=== PATIENT | male | born 1955 | race Caucasian/White ===

== ENCOUNTER 2018-04-15 20:22 | Observation (INO) ==
--- NOTE | 2018-04-15 21:31 | XR ---
EXAM DATE: 04/15/2018 9:23 PM EDT AGE/SEX: 62 years / Male INDICATIONS: Chest pain CLINICAL DATA: This is the patient's initial encounter. Patient reports that signs and symptoms have been present for 1 day and indicates a pain score of 8/10. MEDICAL/SURGICAL HISTORY: None. None. COMPARISON: No prior exams available for comparison. FINDINGS: Minimal basilar airspace disease. No effusion or pneumothorax. Heart size normal CONCLUSION: Minimal basilar opacity, probably atelectasis. No effusion or pneumothorax. Electronically signed by: Salo Roque MD 04/15/2018 9:30 PM EDT
[2018-04-15 21:54] LABS: Baso # (Auto) 0.1 th/mm3 (0.0-0.2); Baso % (Auto) 0.4 % (0.0-2.0); Eos # (Auto) 0.1 th/mm3 (0.0-0.4); Hematocrit 43.6 % (39.0-51.0); Hemoglobin 15.1 gm/dL (13.0-17.0); Lymph # (Auto) 2.8 th/mm3 (1.0-4.8); Lymph % (Auto) 18.9 % (9.0-44.0); Mean Corpuscular HGB Conc 34.6 % (32.0-36.0); Mean Corpuscular Hemoglobin 31.9 pg (27.0-34.0); Mean Corpuscular Volume 92.1 fL (80.0-100.0); Mono # (Auto) 1.4 th/mm3 (0.0-0.9); Mono % (Auto) 9.3 % (0.0-8.0); Neut # (Auto) 10.5 th/mm3 (1.8-7.7); Neut % (Auto) 70.4 % (16.0-70.0); Platelet Count 223 th/mm3 (150-450); Red Blood Count 4.73 mil/mm3 (4.50-5.90); White Blood Count 14.9 th/mm3 (4.0-11.0)
[2018-04-15 22:18] LABS: Alanine Aminotransferase 28 U/L (12-78); Albumin 3.8 g/dL (3.4-5.0); Anion Gap 7 meq/L (5-15); Aspartate Aminotransferase 21 U/L (15-37); Blood Urea Nitrogen 10 mg/dL (7-18); Calcium 8.8 mg/dL (8.5-10.1); Carbon Dioxide 31.2 meq/L (21.0-32.0); Chloride 99 meq/L (98-107); Glomerular Filtration Rate 67 mL/min (>89); Glucose,Random 94 mg/dL (74-106); Potassium 3.7 meq/L (3.5-5.1); Sodium 137 meq/L (136-145)
[2018-04-15 22:22] LABS: Alkaline Phosphatase 69 U/L (45-117); Total Protein 7.4 g/dL (6.4-8.2)
--- NOTE | 2018-04-16 00:05 | CT ---
EXAM DATE: 04/15/2018 11:49 PM EDT AGE/SEX: 62 years / Male INDICATIONS: chest pain with shortness of breath. CLINICAL DATA: This is the patient's initial encounter. Patient reports that signs and symptoms have been present for 1 day and indicates a pain score of 8/10. MEDICAL/SURGICAL HISTORY: Hepatitis C. Abdominal aortic aneurysm repair. RADIATION DOSE: 9.42 CTDI (mGy) COMPARISON: No prior exams available for comparison. TECHNIQUE: Volumetric scanning was performed using a multi-row detector CT scanner during bolus infu gissell of 70 ml Omnipaque 350 (iohexol) nonionic water-soluble contrast as a single exam dose. The esteban a was post processed with a variety of visualization algorithms including full volume maximum intensi ty projection and sliding thin slab reformation. Using automated exposure control and adjustment of the mA and/or kV according to patient size, radiation dose was kept as low as reasonably achievable t o obtain optimal diagnostic quality images. DICOM format image data is available electronically for review and comparison. FINDINGS: There is no pulmonary embolus. Mild to moderate emphysema. No infiltrate, effusion or pneumothorax. Heart size within normal limits. There is right and left side coronary artery calcification. Incident ally seen anatomic variant aberrant right subclavian artery that passes behind both the trachea and e sophagus. No lymphadenopathy. No acute abnormality seen in the upper abdomen. CONCLUSION: 1. No pulmonary embolus. 2. Mild to moderate emphysema. 3. Coronary artery calcification. 4. Aberrant right subclavian artery. Electronically signed by: Javier Ignacio MD 04/16/2018 12:03 AM EDT
[2018-04-16] MEDS ORDERED: Acetaminophen 500 MG Tablet PO PRN (00:52)
--- NOTE | 2018-04-16 00:52 | ED ---
HPI General Chief Complaint: Chest Pain Stated Complaint: chest pain, breathing issues Time Seen by Provider: 04/15/18 21:03 History of Present Illness HPI narrative: 62-year-old male complaining of chest pain acute onset approximately 4-5 PM this evening. No priors. Pain is a squeezing sensation that does not radiate. Patient does not visit with her regular physician. He is a heavy smoker. Related Data Home Medications Medication Instructions Recorded Confirmed No Known Home Medications 04/15/18 04/15/18 Allergies Allergy/AdvReac Type Severity Reaction Status Date / Time No Known Allergies Allergy Verified 04/15/18 20:33 Review of Systems Cardiovascular Reports chest pain PMFSH Social History Social History Substance History: No History of Abuse Second Hand Smoke Exposure: Yes Smoking Status: Current every day smoker Tobacco Type: Cigarettes Packs Per Day: 1 Cigarettes Per Day: 20.0 Years Smoked: 40 Pack-Years: 40.00 How Often Do You Have a Drink Containing Alcohol: 2 to 3 times a week Hx Recent Travel: No Recent Travel in [facility] within the Last 8 Weeks: No Recent Out of Country Travel within the Last 8 Weeks: No Immunization History Tetanus Immunization: Unsure Exam Narrative Exam Narrative: GENERAL: 62-year-old male in mild distress secondary to pain SKIN: Focused skin assessment warm/dry. HEAD: Atraumatic. Normocephalic. EYES: Pupils equal and round. No scleral icterus. No injection or drainage. ENT: No nasal bleeding or discharge. Mucous membranes pink and moist. NECK: Trachea midline. No JVD. CARDIOVASCULAR: Regular rate and rhythm. No murmur appreciated. RESPIRATORY: No accessory muscle use. Clear to auscultation. Breath sounds equal bilaterally. GASTROINTESTINAL: Abdomen soft, non-tender, nondistended. Hepatic and splenic margins not palpable. MUSCULOSKELETAL: No obvious deformities. No clubbing. No cyanosis. No edema. PSYCHIATRIC: Appropriate mood and affect; insight and judgment normal. Course Initial Documented Vital Signs Temperature 98.6 F 04/15/18 20:31 Pulse Rate 95 H 04/15/18 20:31 Respiratory Rate 24 04/15/18 20:31 Blood Pressure 164/78 H 04/15/18 20:31 Pulse Oximetry 96 04/15/18 20:31 Last Documented Vital Signs Temperature 98.8 F 04/16/18 07:54 Pulse Rate 88 04/16/18 07:54 Respiratory Rate 16 04/16/18 07:54 Blood Pressure 135/72 04/16/18 07:54 Pulse Oximetry 95 04/16/18 07:54 Medical Decision Making MDM Narrative Medical decision making narrative: Patient was seen and evaluated in the emergency department. His initial studies were negative. Given his smoking history and persistent chest pain CT was obtained to rule out pulmonary embolism. Patient was placed in chest pain center for ongoing monitoring and evaluation. Medical Screen Exam Complete: Yes Emergency Medical Condition: Yes Lab Data Result diagrams: 04/15/18 21:20 04/15/18 21:20 Lab Results 04/15/18 04/15/18 04/16/18 Range/Units 21:20 21:20 01:20 WBC 14.9 H (4.0-11.0) th/mm3 RBC 4.73 (4.50-5.90) mil/mm3 Hgb 15.1 (13.0-17.0) gm/dL Hct 43.6 (39.0-51.0) % MCV 92.1 (80.0-100.0) fL MCH 31.9 (27.0-34.0) pg MCHC 34.6 (32.0-36.0) % RDW 14.0 (11.6-17.2) % Plt Count 223 (150-450) th/mm3 MPV 8.0 (7.0-11.0) fL Neut % (Auto) 70.4 H (16.0-70.0) % Lymph % (Auto) 18.9 (9.0-44.0) % Darke % (Auto) 9.3 H (0.0-8.0) % Eos % (Auto) 1.0 (0.0-4.0) % Baso % (Auto) 0.4 (0.0-2.0) % Neut # (Auto) 10.5 H (1.8-7.7) th/mm3 Lymph # (Auto) 2.8 (1.0-4.8) th/mm3 Darke # (Auto) 1.4 H (0.0-0.9) th/mm3 Eos # (Auto) 0.1 (0.0-0.4) th/mm3 Baso # (Auto) 0.1 (0.0-0.2) th/mm3 WBC Differential . Differential Comment Auto diff final Sodium 137 (136-145) meq/L Potassium 3.7 (3.5-5.1) meq/L Chloride 99 (98-107) meq/L Carbon Dioxide 31.2 (21.0-32.0) meq/L Anion Gap 7 (5-15) meq/L BUN 10 (7-18) mg/dL Creatinine 1.12 (0.60-1.30) mg/dL Estimated GFR 67 L (>89) mL/min Random Glucose 94 (74-106) mg/dL Calcium 8.8 (8.5-10.1) mg/dL Total Bilirubin 0.3 (0.2-1.0) mg/dL AST 21 (15-37) U/L ALT 28 (12-78) U/L Alkaline Phosphatase 69 (45-117) U/L Total Creatine Kinase 92 (39-308) U/L Troponin I Less than 0.02 L Less than 0.02 L (0.02-0.05) ng/mL Total Protein 7.4 (6.4-8.2) g/dL Albumin 3.8 (3.4-5.0) g/dL 04/16/18 Range/Units 04:00 WBC (4.0-11.0) th/mm3 RBC (4.50-5.90) mil/mm3 Hgb (13.0-17.0) gm/dL Hct (39.0-51.0) % MCV (80.0-100.0) fL MCH (27.0-34.0) pg MCHC (32.0-36.0) % RDW (11.6-17.2) % Plt Count (150-450) th/mm3 MPV (7.0-11.0) fL Neut % (Auto) (16.0-70.0) % Lymph % (Auto) (9.0-44.0) % Darke % (Auto) (0.0-8.0) % Eos % (Auto) (0.0-4.0) % Baso % (Auto) (0.0-2.0) % Neut # (Auto) (1.8-7.7) th/mm3 Lymph # (Auto) (1.0-4.8) th/mm3 Darke # (Auto) (0.0-0.9) th/mm3 Eos # (Auto) (0.0-0.4) th/mm3 Baso # (Auto) (0.0-0.2) th/mm3 WBC Differential Differential Comment Sodium (136-145) meq/L Potassium (3.5-5.1) meq/L Chloride (98-107) meq/L Carbon Dioxide (21.0-32.0) meq/L Anion Gap (5-15) meq/L BUN (7-18) mg/dL Creatinine (0.60-1.30) mg/dL Estimated GFR (>89) mL/min Random Glucose (74-106) mg/dL Calcium (8.5-10.1) mg/dL Total Bilirubin (0.2-1.0) mg/dL AST (15-37) U/L ALT (12-78) U/L Alkaline Phosphatase (45-117) U/L Total Creatine Kinase 90 (39-308) U/L Troponin I Less than 0.02 L (0.02-0.05) ng/mL Total Protein (6.4-8.2) g/dL Albumin (3.4-5.0) g/dL Imaging Data Radiologist's impression: Chest X-Ray 04/15/18 21:04 CONCLUSION: Minimal basilar opacity, probably atelectasis. No effusion or pneumothorax. Chest CTA 04/15/18 22:51 CONCLUSION: 1. No pulmonary embolus. 2. Mild to moderate emphysema. 3. Coronary artery calcification. 4. Aberrant right subclavian artery. Myocardial Perfusion Scan Nuc Med 04/16/18 00:00 CONCLUSION: 1. No reversible perfusion defect to indicate stress-induced myocardial ischemia identified. 2. Ejection fraction within the range of normal. Discharge Plan Discharge Disposition Patient Disposition: 30 Still Patient Discharge Condition Condition: Stable Discharge Order Discharge Orders: Discharge Order (Routine); Ordered 04/16/18 Ordered By: Leonora Thornton Discharge Details Discharge Comment: Contact [facility] [place] for more information and counseling services available Diagnosis: Chest pain Physicians Team ED Provider: Nelson Daniel Primary Care Provider: Primary Care Maria Del Rosario Zuniga Attending Provider: Kareem Nath ED Status: Left Department Discharge Information Discharge Date/Time: 04/16/18 01:56
[2018-04-16] MEDS ORDERED: Sod Chloride 0.9% Inj 1,000 ML IV.CONT SCH (01:00)
[2018-04-16 01:53] LABS: Creatine Kinase 92 U/L (39-308)
[2018-04-16 04:16] VITALS: O2SAT 95
[2018-04-16 04:55] LABS: Creatine Kinase 90 U/L (39-308)
[2018-04-16 07:56] VITALS: BP 135/72; PULSE 88; RESP 16; TEMP 98.8
--- NOTE | 2018-04-16 08:21 | P.HPCA ---
History of Present Illness Primary Care Physician: No Primary Care Physician Chief Complaint: Chest pain History of Present Illness: 62-year-old male current smoker without any known significant medical history presents emergency room for further evaluation of chest pain. Onset 5 PM last evening. Sudden onset. Location substernal. Characterizes tightness and pressure. No radiation. Duration constant, waxing and waning in intensity. Associated symptoms included dizziness. Hurts to take a deep breath. No particular movement or position makes pain better or worse. No associated symptoms of nausea, vomiting, diaphoresis, or dyspnea. No precipitating or relieving factors. Denies similar pain in the past. Family history noncontributory for early onset cardiovascular disease. No recent illness, fever or chills. No increase in sputum production. Past cardiac testing None Social history No known coronary artery disease, hypertension, hyperlipidemia, or diabetes. 1 pack/daily smoker. . [employer] [facility] [employer]. Family history Noncontributory for early onset cardiovascular - Diagnosis (1) Atypical chest pain (2) Tobacco use Review of Systems All other systems reviewed negative except as [facility] - History History Provided By: Patient - Medical / Surgical Hx Neg / Unobtainable Surgical History: No Previous Surgery - Medical History Medical History: Medical History (Last Reviewed 04/16/18 @ 08:15 by MARCELLE Flores) Hepatitis C - Surgical History Surgical History: Surgical History (Last Reviewed 04/16/18 @ 08:15 by MARCELLE Flores) No history of previous surgery - Social History I have reviewed the patient's Social History: Yes - Tobacco History Second Hand Smoke Exposure: Yes Tobacco Use In Past 30 Days: Yes Smoking Status: Current every day smoker Tobacco Type: Cigarettes Packs Per Day: 1 Years Smoked: 40 - Alcohol History How Often Do You Have a Drink Containing Alcohol: 2 to 3 times a week - Substance Use History Substance History: No History of Abuse - Travel History History of Recent Travel: No Recent Travel in the [place] Within the Last 8 Weeks: No Recent Travel Out of the Country Within the Last 8 Weeks: No - Immunization History Tetanus Immunization: Unsure Medications and Allergies Active Medications: Active Medications Acetaminophen (Tylenol) 500 mg PO Q4H PRN PRN Reason: HEADACHE Albuterol (Duoneb Neb (Prn)) 1 ampul NEB Q4HR NEB PRN PRN Reason: SHORTNESS OF BREATH/WHEEZING Sodium Chloride (Ns Inj) 1,000 mls @ 100 mls/hr IV.CONT .Q10H [facility] Last Admin: 04/16/18 01:29 Dose: 100 mls/hr Nitroglycerin (Nitro-Bid 2% Oint) 1 inch TOPICAL Q6HR [facility] Last Admin: 04/16/18 06:19 Dose: 1 inch Sodium Chloride (Ns Flush) 2 ml IV.FLUSH UNSCH PRN PRN Reason: FLUSH AFTER USING IV ACCESS Sodium Chloride (Ns Flush) 2 ml IV.FLUSH BID ADRIANNA Sodium Chloride (Ns Flush) 2 ml IV.FLUSH PRN PRN PRN Reason: FLUSH AFTER USING IV ACCESS Allergies Allergy/AdvReac Type Severity Reaction Status Date / Time No Known Allergies Allergy Verified 04/15/18 20:33 Home Medications Medication Instructions Recorded Confirmed Type No Known Home Medications 04/15/18 04/15/18 History Exam Vital signs: Vital Signs 04/15/18 20:31 04/15/18 20:51 04/15/18 21:24 Temperature 98.6 F Pulse Rate 95 H 94 H 98 H Respiratory Rate 24 20 22 Blood Pressure 164/78 H 144/80 H 143/84 H Pulse Oximetry 96 97 96 04/15/18 21:59 04/15/18 22:22 04/16/18 00:08 Temperature Pulse Rate 89 Respiratory Rate 18 18 18 Blood Pressure 128/74 Pulse Oximetry 96 97 04/16/18 01:29 04/16/18 01:41 04/16/18 02:07 Temperature 98.9 F Pulse Rate 93 H Respiratory Rate 17 Blood Pressure 147/72 H Pulse Oximetry 97 95 96 04/16/18 04:00 04/16/18 07:54 Temperature 98.9 F 98.8 F Pulse Rate 89 88 Respiratory Rate 18 16 Blood Pressure 156/86 H 135/72 Pulse Oximetry 95 95 Intake & Output 04/15/18 04/16/18 04/16/18 18:59 06:59 18:59 Weight 65.8 kg Other: # Voids 1 Narrative: GENERAL: Alert WN, WD, NAD, pleasant, thin, male who appears older than stated age HEAD: NC, AT EYES: Sclera clear, conjunctiva without injection, pupils equal and round ENT: Mucous membranes pink and moist NECK: Supple, no masses, trachea midline CV: RRR, without murmur, rub, gallop, no JVD, S1-S2. RESP: Diminished lungs throughout bilateral, no crackles, wheeze, rhonchi, symmetrical chest rise, nonlabored, able to speak in full sentences ABD: Soft, NT, ND, no masses, positive bowel tones EXT: Pulses +2x4, no dependent edema MS: Normal tone x4 extremities, nontender, no obvious deformities, full range of motion NEURO: CN II through CN XII grossly intact, motor strength 5/5, gait WNL PSYCH: A+O x3, pleasant affect, appropriate speech, mood, insight and judgment SKIN: Normal turgor, normal texture, no lesions, no rashes, brisk cap refill, even hair distribution Results 04/15/18 21:20 04/15/18 21:20 Cardiac Enzymes 04/15/18 04/16/18 04/16/18 Range/Units 21:20 01:20 04:00 AST 21 (15-37) U/L Troponin I Less than 0.02 L Less than 0.02 L Less than 0.02 L (0.02-0.05) ng/mL CBC 04/15/18 Range/Units 21:20 WBC 14.9 H (4.0-11.0) th/mm3 RBC 4.73 (4.50-5.90) mil/mm3 Hgb 15.1 (13.0-17.0) gm/dL Hct 43.6 (39.0-51.0) % Plt Count 223 (150-450) th/mm3 Neut # (Auto) 10.5 H (1.8-7.7) th/mm3 Lymph # (Auto) 2.8 (1.0-4.8) th/mm3 [place] # (Auto) 1.4 H (0.0-0.9) th/mm3 Eos # (Auto) 0.1 (0.0-0.4) th/mm3 Baso # (Auto) 0.1 (0.0-0.2) th/mm3 Comprehensive Metabolic Panel 04/15/18 Range/Units 21:20 Sodium 137 (136-145) meq/L Potassium 3.7 (3.5-5.1) meq/L Chloride 99 (98-107) meq/L Carbon Dioxide 31.2 (21.0-32.0) meq/L BUN 10 (7-18) mg/dL Creatinine 1.12 (0.60-1.30) mg/dL Calcium 8.8 (8.5-10.1) mg/dL AST 21 (15-37) U/L ALT 28 (12-78) U/L Alkaline Phosphatase 69 (45-117) U/L Total Protein 7.4 (6.4-8.2) g/dL Albumin 3.8 (3.4-5.0) g/dL Intake and Output 04/15/18 04/16/18 04/16/18 22:59 06:59 14:59 Other: # Voids 1 Weight 65.771 kg 65.8 kg - Imaging and Cardiology Imaging: Impressions Chest X-Ray 04/15/18 21:04 CONCLUSION: Minimal basilar opacity, probably atelectasis. No effusion or pneumothorax. Chest CTA 04/15/18 22:51 CONCLUSION: 1. No pulmonary embolus. 2. Mild to moderate emphysema. 3. Coronary artery calcification. 4. Aberrant right subclavian artery. EKG interpretations - EKG EKG results cardiology: sinus rhythm, normal axis, normal QRS, normal ST/T Caprini VTE Risk Assessment Caprini VTE Risk Assessment: No/Low Risk (score <= 1) Caprini Risk Assessment Model: Point Value = 1 Point Value = 2 Point Value = 3 Point Value = 5 Age 41-60 Minor surgery BMI > 25 kg/m2 Swollen legs Varicose veins or History of unexplained or recurrent spontaneous Oral contraceptives or hormone replacement Sepsis (< 1 month) Serious lung disease, including pneumonia (< 1 month) Abnormal pulmonary function Acute myocardial infarction Congestive heart failure (< 1 month) History of inflammatory bowel disease Medical patient at bed rest Age 61-74 Arthroscopic surgery Major open surgery (> 45 min) Laparoscopic surgery (> 45 min) Malignancy Confined to bed (> 72 hours) Immobilizing plaster cast Central venous access Age >= 75 History of VTE Family history of VTE Factor V Leiden Prothrombin [id number] Lupus anticoagulant Anticardiolipin antibodies Elevated serum homocysteine Heparin-induced thrombocytopenia Other congenital or acquired thrombophilia Stroke (< 1 month) Elective arthroplasty Hip, pelvis, or leg fracture Acute spinal cord injury (< 1 month) Prophylaxis Regimen: Total Risk Factor Score Risk Level Prophylaxis Regimen 0-1 Low Early ambulation 2 Moderate Order ONE of the following: *Sequential Compression Device (SCD) *Heparin 5000 units SQ BID 3-4 Higher Order ONE of the following medications: *Heparin 5000 units SQ TID *Enoxaparin/Lovenox 40 mg SQ daily (WT < 150 kg, CrCl > 30 mL/min) *Enoxaparin/Lovenox 30 mg SQ daily (WT < 150 kg, CrCl > 10-29 mL/min) *Enoxaparin/Lovenox 30 mg SQ BID (WT < 150 kg, CrCl > 30 mL/min) AND/OR *Sequential Compression Device (SCD) 5 or more Highest Order ONE of the following medications: *Heparin 5000 units SQ TID (Preferred with Epidurals) *Enoxaparin/Lovenox 40 mg SQ daily (WT < 150 kg, CrCl > 30 mL/min) *Enoxaparin/Lovenox 30 mg SQ daily (WT < 150 kg, CrCl > 10-29 mL/min) *Enoxaparin/Lovenox 30 mg SQ BID (WT < 150 kg, CrCl > 30 mL/min) AND *Sequential Compression Device (SCD) Assessment and Plan - Assessment (1) Atypical chest pain Code(s): R07.89 - Other chest pain Status: Acute Plan: Admitted chest pain center. Monitor on telemetry. ACS ruled out by 3 sets of EKGs and cardiac enzymes. Seen and evaluated by Dr. Michele Dias. Proceed with Lexiscan this morning. As needed respiratory treatments ordered, discussed with RN. Discomfort constant greater than 12 hours, atypical in presentation cardiac etiology. Likely related to long-standing tobacco use. Encouraged establishing with a primary care provider for further management. (2) Tobacco use Code(s): Z72.0 - Tobacco use Status: Chronic Plan: Strongly encouraged and stressed importance of tobacco cessation. Instructed to quit smoking. Discussed Tobacco Free [place] program available to him. H&P: Quality - VTE Deep Vein Thrombosis/Pulmonary Embolism Present on Admission: No
[2018-04-16] MEDS ORDERED: Regadenoson Inj 0.4 MG/5 ML Syringe IV.PUSH ONE (09:40)
--- NOTE | 2018-04-16 10:45 | NM ---
EXAM DATE: 04/16/2018 10:36 AM EDT AGE/SEX: 62 years / Male INDICATIONS:Angina. . Chest pain. CLINICAL DATA: This is the patient's initial encounter. Patient reports that signs and symptoms have been present for 1 day and indicates a pain score of 8/10. MEDICAL/SURGICAL HISTORY: Hepatitis C. Smoker. None. COMPARISON: . DOSE: 8.4 mCi Tc 99m Myoview at rest 25.9 mCi [id number] at stress 0.4 mg Lexiscan STRESS SYMPTOMS: Short of breath. EJECTION FRACTION: 54 % TECHNIQUE: The patient underwent pharmacologic stress with infusion of prescribed dose. Continuous ECG tracing was monitored during stress. Gated SPECT imaging was performed after stress and conventi onal SPECT imaging was performed at rest. The examination was performed on a SPECT/CT scanner, both attenuation and non-corrected datasets were reviewed. FINDINGS: Distribution: The maximum perfused segment at stress is in the anterolateral wall. Perfusion Study: The pattern of perfusion at stress is within normal limits. Gated Study: There are intact wall motion and wall thickening without hypokinetic or dyskinetic segm ents. The ejection fraction is calculated at 54%. RISK CATEGORY: Low (<1% Annual Motality Rate) CONCLUSION: 1. No reversible perfusion defect to indicate stress-induced myocardial ischemia identified. 2. Ejection fraction within the range of normal. Electronically signed by: Preet Diaz MD 04/16/2018 10:44 AM EDT
--- NOTE | 2018-04-17 17:24 | ECG ---
Date Performed: 04/16/2018 Time Performed: 04:17:40 PTAGE: 62 years EKG: Sinus rhythm POSSIBLE RIGHT ATRIAL ENLARGEMENT POSSIBLE LEFT ATRIAL ENLARGEMENT POSSIBLE RIGHT VENTRICULAR CONDUC TION DELAY BORDERLINE ECG Since PREVIOUS TRACING , no significant change noted DOCTOR: Randi Banerjee Interpretating Date/Time 04/17/2018 17:22:57
--- NOTE | 2018-04-17 17:24 | TR ---
Date Performed: 04/16/2018 Time Performed: 09:28:11 DOCTOR: Randi Banerjee DRUG LIST: CLINICAL HISTORY: REASON FOR TEST: REASON FOR ENDING: OBSERVATION: CONCLUSION: Lexiscan stress test was performed under standard four minute protocol. Radionuclid e was injected one minute prior to ending the test. No electrocardiographic abormalities were present to suggest ischemia. Nuclear imaging and interpretation are pending. COMMENTS: Lexiscan stress test was performed under standard four minute protocol. Radionuclide was injected one minute prior to ending the test. No electrocardiographic abormalities were present t o suggest ischemia. Nuclear imaging and interpretation are pending.
--- NOTE | 2018-04-17 17:25 | ECG ---
Date Performed: 04/16/2018 Time Performed: 01:22:00 PTAGE: 62 years EKG: Sinus rhythm POSSIBLE LEFT ATRIAL ENLARGEMENT POSSIBLE RIGHT VENTRICULAR CONDUCTION DELAY BORDERLINE ECG Since PREVIOUS TRACING , no significant change noted PREVIOUS TRACIN04/15/2018 20.41 DOCTOR: Randi Banerjee Interpretating Date/Time 04/17/2018 17:23:08
--- NOTE | 2018-04-17 17:26 | ECG ---
Date Performed: 04/15/2018 Time Performed: 20:41:35 PTAGE: 62 years EKG: Sinus rhythm POSSIBLE LEFT ATRIAL ENLARGEMENT INCOMPLETE RIGHT BUNDLE BRANCH BLOCK BORDERLINE ECG NO PREVIOUS TRACING DOCTOR: Randi Banerjee Interpretating Date/Time 04/17/2018 17:24:16
== END 2018-04-16 12:25 | disposition home or self-care (01) ==
LOC: NEPC 20:22 → NEDA 20:22 → NEPFCDU 04-16 01:39